=== PATIENT | female | born 1930 | race Caucasian/White ===

== ENCOUNTER 2017-10-29 07:50 | Day surgery (SDC) | payer MEDICARE, OTHER ==
[~2017-10-29 07:50] MED LIST: ACIDOPHILUS PRO PO; ADULT ASPIRIN L81 MG; AMLODIPINE10 MG OR; AMLODIPINE5 MG PO; ARICEPT PO; ASPIRIN EC81 MG PO; BACTRIM DS1 TAB PO; BAYER ASPIRIN325 MG PO; BENADRYL25 MG OR; BENZONATATE200 MG PO; CARAFATE OR; CARAFATE PO; CIPRO250 MG OR; CIPRO500 MG PO; CIPROFLOXACN250 MG PO; CIPROFLOXACN500 MG PO; DONEPEZIL5 MG PO; FISH OIL1000 MG PO; FLUARIX QUADRIV1 IN2 IM; FLUARIX QUADRIV1 INJ IM; ISMO OR; KEFLEX500 MG PO; LIPITOR40 M1 PO; LIPITOR40 MG PO; LIPITOR80 MG OR; LOPRESSOR25 MG OR; LOPRESSOR25 MG PO; MECLIZINE12.5 M1 PO; MECLIZINE12.5 MG OR; MELATONIN PO; MELOXICAM7.5 MG PO; METOPROL TAR25 M1 PO; METRONIDAZOL500 MG PO; METRONIDAZOLE250 MG PO; MULT1 PO; MULTI VIT PO; MYRBETRIQ25 MG; NEXIUM40 M1 OR; PANTOPRAZOLE SO40 MG PO; PAROXETINE10 MG PO; PLAVIX75 MG OR; PRILOSEC20 MG/CAP PO; PROBIOTIC1 TAB PO; PROPRANOLOL HCL40 MG PO; PROTONIX40 M2 PO; SPIRIVA HANDIHALER IN; TUSSIONEX1 ML PO; ULTRAM50 M1 PO; XANAX0.25 MG PO; ZOLOFT25 MG PO; ZPAK PO
[2017-10-29] MEDS ORDERED: KEFLEX500 M1 PO (13:23)
[2017-10-29 13:55] VITALS: BP 120/70
== END 2017-10-29 13:45 | disposition home or self-care (01) ==
LOC: ORM 07:50
PROVIDERS: ATTEND Plastic Surgery
PROC: 0HB2XZZ Excision of Right Ear Skin, External Approach (ICD-10-PCS; principal; 2017-10-29)
PROC: 0HX2XZZ Transfer Right Ear Skin, External Approach (ICD-10-PCS; 2017-10-29)
DX: C44.212 Basal cell carcinoma of skin of right ear and external auricular canal (principal)

== ENCOUNTER 2018-07-02 16:20 | Inpatient (IN) | payer MEDICARE, OTHER, MEDICAID ==
[~2018-07-02] VITALS: Ht 165.1 cm; Wt 63.1 kg
[~2018-07-02 16:20] MED LIST changes: +KEFLEX500 M1 PO
[2018-07-02 17:36] LABS: URINE BILIRUBIN - DIPSTICK NEGATIVE (NEGATIVE); URINE BLOOD DIPSTICK LARGE (NEGATIVE); URINE GLUCOSE - DIPSTICK NEGATIVE (NEGATIVE); URINE KETONE NEGATIVE (NEGATIVE); URINE NITRITE - DIPSTICK NEGATIVE (Negative); URINE PROTEIN - DIPSTICK 30 mg/dL (NEG-TRACE); URINE SPECIFIC GRAVITY 1.015; URINE UROBILINOGEN - DIPSTICK 0.2 E.U./dL (0.2)
[2018-07-02 17:42] LABS: URINE COLOR AMBER; URINE LEUK ESTERASE MODERATE (NEGATIVE)
[2018-07-02 17:47] LABS: URINE BACTERIA MANY hpf; URINE RBC >100 RBC/hpf (0-5)
[2018-07-02 17:47] LABS: HEMATOCRIT 36.3 % (37.0-47.0); HEMOGLOBIN 11.7 g/dl (12.0-16.0); IMMATURE GRANULOCYTES 1.4 % (0.0-5.0); MEAN CELL VOLUME 91.9 fL CALC (80.0-100.0); MEAN CORPUSCULAR HGB 29.6 pG CALC (26.0-32.0); MEAN CORPUSCULAR HGB CONC 32.2 g/L CALC (32.0-36.0); NEUT# 15.64 thou/uL (2.00-7.15); RED BLOOD COUNT 3.95 mill/uL (4.20-5.60); RED CELL DISTRI WIDTH 14.2 % (11.5-15.5)
[2018-07-02 18:06] LABS: ALBUMIN 3.3 g/dL (3.2-5.0); BILIRUBIN, TOTAL 0.6 mg/dL (0.0-1.4); CREATININE 1.1 mg/dL (0.5-1.0); POTASSIUM 3.4 mmol/l (3.5-5.1); TOTAL PROTEIN 6.2 g/dL (6.3-8.2)
[2018-07-02 19:10] VITALS: BP 140/73
[2018-07-03 04:15] VITALS: BP 115/60
[2018-07-03 05:38] LABS: HEMATOCRIT 34.2 % (37.0-47.0); HEMOGLOBIN 11.1 g/dl (12.0-16.0); IMMATURE GRANULOCYTES 5.2 % (0.0-5.0); MEAN CELL VOLUME 92.9 fL CALC (80.0-100.0); MEAN CORPUSCULAR HGB 30.2 pG CALC (26.0-32.0); MEAN CORPUSCULAR HGB CONC 32.5 g/L CALC (32.0-36.0); PLATELET COUNT 154 thou/uL (130-400); RED BLOOD COUNT 3.68 mill/uL (4.20-5.60); RED CELL DISTRI WIDTH 14.6 % (11.5-15.5)
[2018-07-03 05:46] LABS: ALBUMIN 2.9 g/dL (3.2-5.0); BILIRUBIN, TOTAL 0.6 mg/dL (0.0-1.4); CREATININE 1.2 mg/dL (0.5-1.0); POTASSIUM 3.9 mmol/l (3.5-5.1); TOTAL PROTEIN 5.5 g/dL (6.3-8.2)
[2018-07-03 06:05] LABS: ACANTHOCYTES FEW; ANISOCYTOSIS FEW; BAND 13 % (0-8); MANUAL DIFFERENTIAL YES; OVALOCYTES FEW; PLATELET ESTIMATE NORMAL
[2018-07-03 07:52] VITALS: BP 109/64
[2018-07-03 15:17] VITALS: BP 102/71
[2018-07-03 18:48] VITALS: BP 140/66
[2018-07-04] VITALS (7 sets, daily range): BP systolic 136–164; BP diastolic 51–81
[2018-07-04 05:39] LABS: HEMATOCRIT 33.3 % (37.0-47.0); HEMOGLOBIN 10.8 g/dl (12.0-16.0); MEAN CELL VOLUME 91.7 fL CALC (80.0-100.0); MEAN CORPUSCULAR HGB 29.8 pG CALC (26.0-32.0); MEAN CORPUSCULAR HGB CONC 32.4 g/L CALC (32.0-36.0); PLATELET COUNT 138 thou/uL (130-400); RED BLOOD COUNT 3.63 mill/uL (4.20-5.60); RED CELL DISTRI WIDTH 14.6 % (11.5-15.5)
[2018-07-04 05:50] LABS: ALBUMIN 2.7 g/dL (3.2-5.0); ALKALINE PHOSPHATASE 114 u/l (38-126); ANION GAP 11 (6-22 (CALC)); BILIRUBIN, TOTAL 0.6 mg/dL (0.0-1.4); BUN 20 mg/dL (8-23); BUN/CREATININE RATIO 23 (12-20 (CALC)); CARBON DIOXIDE 21 mmol/l (22-30); CHLORIDE 113 mmol/l (95-108); CREATININE 0.9 mg/dL (0.5-1.0); GFR 59 ML/MIN (>=60 (CALC)); GFR FOR AFR.AMER. > 60 ML/MIN (>=60 (CALC)); POTASSIUM 3.6 mmol/l (3.5-5.1); SGOT/AST 61 u/l (9-36); SODIUM 142 mmol/l (137-146); TOTAL PROTEIN 5.4 g/dL (6.3-8.2)
[2018-07-04 06:07] LABS: BAND 2 % (0-8); IMMATURE GRANULOCYTES 7.5 % (0.0-5.0); MANUAL DIFFERENTIAL YES
[2018-07-04 06:08] LABS: ACANTHOCYTES FEW; ANISOCYTOSIS FEW; OVALOCYTES FEW; PLATELET ESTIMATE NORMAL
[2018-07-05] VITALS (7 sets, daily range): BP systolic 96–134; BP diastolic 62–85
[2018-07-05 08:54] LABS: HEMATOCRIT 34.1 % (37.0-47.0); HEMOGLOBIN 11.2 g/dl (12.0-16.0); IMMATURE GRANULOCYTES 1.6 % (0.0-5.0); MEAN CELL VOLUME 90.5 fL CALC (80.0-100.0); MEAN CORPUSCULAR HGB 29.7 pG CALC (26.0-32.0); MEAN CORPUSCULAR HGB CONC 32.8 g/L CALC (32.0-36.0); NEUT# 13.34 thou/uL (2.00-7.15); RED BLOOD COUNT 3.77 mill/uL (4.20-5.60); RED CELL DISTRI WIDTH 14.6 % (11.5-15.5)
[2018-07-05 09:13] LABS: ANION GAP 10 (6-22 (CALC)); BUN 14 mg/dL (8-23); BUN/CREATININE RATIO 19 (12-20 (CALC)); CARBON DIOXIDE 22 mmol/l (22-30); CHLORIDE 115 mmol/l (95-108); CREATININE 0.7 mg/dL (0.5-1.0); GFR > 60 ML/MIN (>=60 (CALC)); GFR FOR AFR.AMER. > 60 ML/MIN (>=60 (CALC)); POTASSIUM 3.5 mmol/l (3.5-5.1); SODIUM 144 mmol/l (137-146)
[2018-07-06 04:20] VITALS: BP 129/81
[2018-07-06 08:44] VITALS: BP 140/75
[2018-07-06 11:10] VITALS: BP 128/75
[2018-07-06 16:00] VITALS: BP 131/72
[2018-07-06 19:52] VITALS: BP 106/58
[2018-07-06 23:15] VITALS: BP 125/87
[2018-07-07 04:27] VITALS: BP 162/84
[2018-07-07 05:36] LABS: HEMATOCRIT 33.1 % (37.0-47.0); HEMOGLOBIN 10.7 g/dl (12.0-16.0); IMMATURE GRANULOCYTES 0.7 % (0.0-5.0); MEAN CELL VOLUME 90.4 fL CALC (80.0-100.0); MEAN CORPUSCULAR HGB 29.2 pG CALC (26.0-32.0); MEAN CORPUSCULAR HGB CONC 32.3 g/L CALC (32.0-36.0); PLATELET COUNT 198 thou/uL (130-400); RED BLOOD COUNT 3.66 mill/uL (4.20-5.60); RED CELL DISTRI WIDTH 14.7 % (11.5-15.5)
[2018-07-07 05:56] LABS: ALBUMIN 2.7 g/dL (3.2-5.0); ALKALINE PHOSPHATASE 129 u/l (38-126); ANION GAP 11 (6-22 (CALC)); BILIRUBIN, TOTAL 0.6 mg/dL (0.0-1.4); BUN 14 mg/dL (8-23); BUN/CREATININE RATIO 17 (12-20 (CALC)); CARBON DIOXIDE 23 mmol/l (22-30); CHLORIDE 115 mmol/l (95-108); CREATININE 0.8 mg/dL (0.5-1.0); GFR > 60 ML/MIN (>=60 (CALC)); GFR FOR AFR.AMER. > 60 ML/MIN (>=60 (CALC)); POTASSIUM 3.3 mmol/l (3.5-5.1); SGOT/AST 27 u/l (9-36); SODIUM 146 mmol/l (137-146); TOTAL PROTEIN 5.4 g/dL (6.3-8.2)
[2018-07-07 06:20] LABS: HYPOCHROMIA MODERATE; MANUAL DIFFERENTIAL YES; MICROCYTOSIS MODERATE
[2018-07-07 06:21] LABS: PLATELET ESTIMATE NORMAL
[2018-07-07 08:19] VITALS: BP 181/84
[2018-07-07 09:34] VITALS: BP 165/85
[2018-07-07 12:00] VITALS: BP 117/74
[2018-07-07 16:00] VITALS: BP 155/82
[2018-07-07 19:00] VITALS: BP 161/83
[2018-07-08 00:06] VITALS: BP 127/79
[2018-07-08 04:09] VITALS: BP 164/94
[2018-07-08 07:55] VITALS: BP 167/91
[2018-07-08 11:30] VITALS: BP 137/67
[2018-07-08 17:15] VITALS: BP 135/67
[2018-07-08 19:00] VITALS: BP 150/76
[2018-07-09 04:00] VITALS: BP 148/82
[2018-07-09 06:53] LABS: HEMOGLOBIN 11.5 g/dl (12.0-16.0); IMMATURE GRANULOCYTES 0.6 % (0.0-5.0); MEAN CELL VOLUME 90.9 fL CALC (80.0-100.0); MEAN CORPUSCULAR HGB 29.9 pG CALC (26.0-32.0); MEAN CORPUSCULAR HGB CONC 32.9 g/L CALC (32.0-36.0); RED BLOOD COUNT 3.85 mill/uL (4.20-5.60); RED CELL DISTRI WIDTH 14.6 % (11.5-15.5)
[2018-07-09 07:00] LABS: ANION GAP 11 (6-22 (CALC)); BUN 9 mg/dL (8-23); BUN/CREATININE RATIO 14 (12-20 (CALC)); CARBON DIOXIDE 25 mmol/l (22-30); CHLORIDE 110 mmol/l (95-108); CREATININE 0.6 mg/dL (0.5-1.0); GFR > 60 ML/MIN (>=60 (CALC)); GFR FOR AFR.AMER. > 60 ML/MIN (>=60 (CALC)); POTASSIUM 3.4 mmol/l (3.5-5.1); SODIUM 143 mmol/l (137-146)
[2018-07-09 07:15] LABS: MANUAL DIFFERENTIAL YES
[2018-07-09 07:16] LABS: HYPOCHROMIA FEW; MICROCYTOSIS FEW
[2018-07-09 07:17] LABS: PLATELET ESTIMATE NORMAL
[2018-07-09 07:18] LABS: PLATELET COUNT 238 thou/uL (130-400)
[2018-07-09 09:11] VITALS: BP 148/83
[2018-07-09 15:45] VITALS: BP 154/82
[2018-07-09] MEDS ORDERED: LEVAQUIN750 MG PO (17:29)
[2018-07-09] MEDS ORDERED: TRAMADOL HCL50 MG PO (17:31)
== END 2018-07-09 18:00 | DRG 871 ==
LOC: ED 16:20 → ED-I 18:05 → ED 18:33 → MS2 18:34
PROVIDERS: Family Medicine; ADMIT Internal Medicine Geriatric Medicine; ATTEND Internal Medicine Geriatric Medicine
PROC: 0T9B70Z Drainage of Bladder with Drainage Device, Via Natural or Artificial Opening (ICD-10-PCS; principal; 2018-07-03)
DX: A41.9 Sepsis, unspecified organism (principal); J18.9 Pneumonia, unspecified organism; N39.0 Urinary tract infection, site not specified; M48.54XA Collapsed vertebra, not elsewhere classified, thoracic region, initial encounter for fracture; I10 Essential (primary) hypertension; I25.10 Atherosclerotic heart disease of native coronary artery without angina pectoris; F03.90 Unspecified dementia, unspecified severity, without behavioral disturbance, psychotic disturbance, mood disturbance, and anxiety; K27.9 Peptic ulcer, site unspecified, unspecified as acute or chronic, without hemorrhage or perforation; K21.9 Gastro-esophageal reflux disease without esophagitis; R62.7 Adult failure to thrive; E86.0 Dehydration; B96.20 Unspecified Escherichia coli [E. coli] as the cause of diseases classified elsewhere; Z68.23 Body mass index [BMI] 23.0-23.9, adult
CPT/HCPCS: G0378; J2060

== ENCOUNTER 2018-07-23 18:48 | Inpatient (IN) | payer MEDICARE, OTHER, MEDICAID ==
[~2018-07-23] VITALS: Ht 165.1 cm; Wt 57.8 kg
[~2018-07-23 18:48] MED LIST changes: +LEVAQUIN750 MG PO; +TRAMADOL HCL50 MG PO
[2018-07-23] MEDS ORDERED: CIPROFLOXACIN500 M1 PO (19:22)
[2018-07-23] MEDS ORDERED: ZYRTEC5 M1 PO (19:23)
[2018-07-23] MEDS ORDERED: NASONEX50 MCG/ACT (19:24)
[2018-07-23 20:02] LABS: HEMATOCRIT 37.2 % (37.0-47.0); IMMATURE GRANULOCYTES 0.5 % (0.0-5.0); MEAN CELL VOLUME 89.4 fL CALC (80.0-100.0); MEAN CORPUSCULAR HGB 28.8 pG CALC (26.0-32.0); MEAN CORPUSCULAR HGB CONC 32.3 g/L CALC (32.0-36.0); NEUT# 7.17 thou/uL (2.00-7.15); RED BLOOD COUNT 4.16 mill/uL (4.20-5.60); RED CELL DISTRI WIDTH 14.3 % (11.5-15.5)
[2018-07-23 20:10] LABS: ALBUMIN 3.9 g/dL (3.2-5.0); ALKALINE PHOSPHATASE 119 u/l (38-126); ANION GAP 15 (6-22 (CALC)); BILIRUBIN, TOTAL 0.8 mg/dL (0.0-1.4); BUN 24 mg/dL (8-23); BUN/CREATININE RATIO 19 (12-20 (CALC)); CARBON DIOXIDE 22 mmol/l (22-30); CHLORIDE 106 mmol/l (95-108); CREATININE 1.3 mg/dL (0.5-1.0); GFR 39 ML/MIN (>=60 (CALC)); GFR FOR AFR.AMER. 47 ML/MIN (>=60 (CALC)); POTASSIUM 3.9 mmol/l (3.5-5.1); SGOT/AST 33 u/l (9-36); SODIUM 139 mmol/l (137-146); TOTAL PROTEIN 7.4 g/dL (6.3-8.2)
[2018-07-23 20:21] LABS: MYOGLOBIN 32 ng/mL (0 - 62)
[2018-07-23 20:36] LABS: URINE BILIRUBIN - DIPSTICK NEGATIVE (NEGATIVE); URINE BLOOD DIPSTICK SMALL (NEGATIVE); URINE COLOR YELLOW; URINE GLUCOSE - DIPSTICK NEGATIVE (NEGATIVE); URINE KETONE NEGATIVE (NEGATIVE); URINE LEUK ESTERASE NEGATIVE (NEGATIVE); URINE NITRITE - DIPSTICK NEGATIVE (Negative); URINE PH 6.5 (4.5-8.0); URINE PROTEIN - DIPSTICK NEGATIVE (NEG-TRACE); URINE UROBILINOGEN - DIPSTICK 0.2 E.U./dL (0.2)
[2018-07-23 20:44] LABS: URINE SQUAMOUS EPITHELIAL CELL FEW EPI/hpf (0-FEW); URINE WBC 0-2 WBC/hpf (0-5)
[2018-07-23 22:25] VITALS: BP 108/54
[2018-07-24] VITALS (7 sets, daily range): BP systolic 87–187; BP diastolic 47–99
[2018-07-24 10:58] LABS: URINE BILIRUBIN - DIPSTICK NEGATIVE (NEGATIVE); URINE BLOOD DIPSTICK SMALL (NEGATIVE); URINE COLOR YELLOW; URINE GLUCOSE - DIPSTICK NEGATIVE (NEGATIVE); URINE KETONE NEGATIVE (NEGATIVE); URINE LEUK ESTERASE NEGATIVE (Negative); URINE NITRITE - DIPSTICK NEGATIVE (Negative); URINE PH 6.5 (4.5-8.0); URINE PROTEIN - DIPSTICK NEGATIVE (NEG-TRACE); URINE SPECIFIC GRAVITY 1.015; URINE UROBILINOGEN - DIPSTICK 0.2 E.U./dL (0.2)
[2018-07-24 11:02] LABS: URINE CLARITY CLEAR
[2018-07-24 11:14] LABS: URINE RBC 25-50 RBC/hpf (0-5); URINE SQUAMOUS EPITHELIAL CELL FEW EPI/hpf (0-FEW)
[2018-07-25] VITALS (7 sets, daily range): BP systolic 125–152; BP diastolic 63–83
[2018-07-25 06:13] LABS: HEMATOCRIT 35.5 % (37.0-47.0); HEMOGLOBIN 11.2 g/dl (12.0-16.0); IMMATURE GRANULOCYTES 0.4 % (0.0-5.0); MEAN CELL VOLUME 91.3 fL CALC (80.0-100.0); MEAN CORPUSCULAR HGB 28.8 pG CALC (26.0-32.0); MEAN CORPUSCULAR HGB CONC 31.5 g/L CALC (32.0-36.0); NEUT# 4.09 thou/uL (2.00-7.15); RED BLOOD COUNT 3.89 mill/uL (4.20-5.60); RED CELL DISTRI WIDTH 14.3 % (11.5-15.5)
[2018-07-25 06:39] LABS: CREATININE 1.3 mg/dL (0.5-1.0); POTASSIUM 3.7 mmol/l (3.5-5.1)
[2018-07-25 06:42] LABS: BILIRUBIN, TOTAL 0.4 mg/dL (0.0-1.4)
[2018-07-25 06:43] LABS: ALBUMIN 2.7 g/dL (3.2-5.0); TOTAL PROTEIN 5.6 g/dL (6.3-8.2)
[2018-07-26 04:08] VITALS: BP 149/88
[2018-07-26 05:08] LABS: HEMATOCRIT 32.1 % (37.0-47.0); HEMOGLOBIN 10.7 g/dl (12.0-16.0); IMMATURE GRANULOCYTES 0.2 % (0.0-5.0); MEAN CELL VOLUME 88.7 fL CALC (80.0-100.0); MEAN CORPUSCULAR HGB 29.6 pG CALC (26.0-32.0); MEAN CORPUSCULAR HGB CONC 33.3 g/L CALC (32.0-36.0); RED BLOOD COUNT 3.62 mill/uL (4.20-5.60)
[2018-07-26 06:22] LABS: MANUAL DIFFERENTIAL YES; PLATELET COUNT 92 thou/uL (130-400)
[2018-07-26 06:23] LABS: CREATININE 1.2 mg/dL (0.5-1.0); OTHER CELL TYPE 3; POTASSIUM 3.5 mmol/l (3.5-5.1)
[2018-07-26 10:30] VITALS: BP 161/82
[2018-07-26 15:24] VITALS: BP 171/96
[2018-07-26 19:05] VITALS: BP 168/80
[2018-07-27] VITALS: BP 147/86
[2018-07-27 04:27] VITALS: BP 133/83
[2018-07-27 07:00] VITALS: BP 107/61
[2018-07-27 14:30] VITALS: BP 134/77
[2018-07-27 19:00] VITALS: BP 145/85
[2018-07-28 04:30] VITALS: BP 156/90
[2018-07-28 05:27] LABS: HEMATOCRIT 34.2 % (37.0-47.0); HEMOGLOBIN 11.2 g/dl (12.0-16.0); IMMATURE GRANULOCYTES 0.2 % (0.0-5.0); MEAN CELL VOLUME 87.9 fL CALC (80.0-100.0); MEAN CORPUSCULAR HGB 28.8 pG CALC (26.0-32.0); MEAN CORPUSCULAR HGB CONC 32.7 g/L CALC (32.0-36.0); RED BLOOD COUNT 3.89 mill/uL (4.20-5.60); RED CELL DISTRI WIDTH 14.1 % (11.5-15.5)
[2018-07-28 05:56] LABS: PLATELET COUNT 72 thou/uL (130-400)
[2018-07-28 05:57] LABS: MANUAL DIFFERENTIAL YES; OTHER CELL TYPE 4; PLATELET ESTIMATE MARKED DECREASE
[2018-07-28 06:15] LABS: ANION GAP 12 (6-22 (CALC)); BUN 16 mg/dL (8-23); BUN/CREATININE RATIO 21 (12-20 (CALC)); CARBON DIOXIDE 22 mmol/l (22-30); CHLORIDE 109 mmol/l (95-108); CREATININE 0.7 mg/dL (0.5-1.0); GFR > 60 ML/MIN (>=60 (CALC)); GFR FOR AFR.AMER. > 60 ML/MIN (>=60 (CALC)); POTASSIUM 3.7 mmol/l (3.5-5.1); SODIUM 139 mmol/l (137-146)
[2018-07-28 07:50] VITALS: BP 179/75
[2018-07-28 11:30] VITALS: BP 147/69
[2018-07-28 15:45] VITALS: BP 164/73
[2018-07-28 19:00] VITALS: BP 142/51
[2018-07-29 04:15] VITALS: BP 136/71
[2018-07-29 08:20] VITALS: BP 117/54
[2018-07-29 09:53] VITALS: BP 117/54
== END 2018-07-29 12:06 | disposition home health service (06) | DRG 641 ==
LOC: ED 18:48 → ED-I 20:50 → ED 21:10 → MS2 21:11
PROVIDERS: Emergency Medicine; ADMIT Internal Medicine Geriatric Medicine; ATTEND Internal Medicine Geriatric Medicine
PROC: 0T9B70Z Drainage of Bladder with Drainage Device, Via Natural or Artificial Opening (ICD-10-PCS; principal; 2018-07-24)
DX: E86.0 Dehydration (principal); R50.9 Fever, unspecified; F03.90 Unspecified dementia, unspecified severity, without behavioral disturbance, psychotic disturbance, mood disturbance, and anxiety; I10 Essential (primary) hypertension; I25.10 Atherosclerotic heart disease of native coronary artery without angina pectoris; K21.9 Gastro-esophageal reflux disease without esophagitis; K27.9 Peptic ulcer, site unspecified, unspecified as acute or chronic, without hemorrhage or perforation; Z86.73 Personal history of transient ischemic attack (TIA), and cerebral infarction without residual deficits
CPT/HCPCS: J1956; J3370

== ENCOUNTER 2018-08-04 18:17 | Observation (INO) | payer MEDICARE, OTHER, MEDICAID ==
[~2018-08-04] VITALS: Ht 165.1 cm; Wt 61.0 kg
[~2018-08-04 18:17] MED LIST changes: +CIPROFLOXACIN500 M1 PO; +NASONEX50 MCG/ACT; +ZYRTEC5 M1 PO
[2018-08-04 19:27] LABS: HEMATOCRIT 31.9 % (37.0-47.0); IMMATURE GRANULOCYTES 0.6 % (0.0-5.0); MEAN CELL VOLUME 90.1 fL CALC (80.0-100.0); MEAN CORPUSCULAR HGB 28.2 pG CALC (26.0-32.0); MEAN CORPUSCULAR HGB CONC 31.3 g/L CALC (32.0-36.0); NEUT# 3.99 thou/uL (2.00-7.15); RED BLOOD COUNT 3.54 mill/uL (4.20-5.60); RED CELL DISTRI WIDTH 14.6 % (11.5-15.5)
[2018-08-04 19:33] LABS: ALKALINE PHOSPHATASE 123 u/l (38-126); ANION GAP 13 (6-22 (CALC)); BUN 18 mg/dL (8-23); BUN/CREATININE RATIO 23 (12-20 (CALC)); CARBON DIOXIDE 25 mmol/l (22-30); CHLORIDE 107 mmol/l (95-108); CREATININE 0.8 mg/dL (0.5-1.0); GFR > 60 ML/MIN (>=60 (CALC)); GFR FOR AFR.AMER. > 60 ML/MIN (>=60 (CALC)); LIPASE 123 u/l (23-300); SGOT/AST 45 u/l (9-36); SODIUM 141 mmol/l (137-146)
[2018-08-04 19:40] LABS: ALBUMIN 3.4 g/dL (3.2-5.0); BILIRUBIN, TOTAL 0.6 mg/dL (0.0-1.4); TOTAL PROTEIN 6.9 g/dL (6.3-8.2)
[2018-08-04 20:11] LABS: URINE BILIRUBIN - DIPSTICK NEGATIVE (NEGATIVE); URINE BLOOD DIPSTICK LARGE (NEGATIVE); URINE COLOR YELLOW; URINE GLUCOSE - DIPSTICK NEGATIVE (NEGATIVE); URINE KETONE NEGATIVE (NEGATIVE); URINE LEUK ESTERASE NEGATIVE (NEGATIVE); URINE NITRITE - DIPSTICK NEGATIVE (Negative); URINE PROTEIN - DIPSTICK NEGATIVE (NEG-TRACE); URINE UROBILINOGEN - DIPSTICK 0.2 E.U./dL (0.2)
[2018-08-04 20:21] LABS: URINE RBC 25-50 RBC/hpf (0-5); URINE WBC 0-2 WBC/hpf (0-5)
[2018-08-04 22:59] VITALS: BP 115/68
[2018-08-05] VITALS (9 sets, daily range): BP systolic 84–131; BP diastolic 50–83
[2018-08-05 06:05] LABS: HEMOGLOBIN 8.9 g/dl (12.0-16.0); IMMATURE GRANULOCYTES 0.3 % (0.0-5.0); MEAN CELL VOLUME 89.5 fL CALC (80.0-100.0); MEAN CORPUSCULAR HGB 28.4 pG CALC (26.0-32.0); MEAN CORPUSCULAR HGB CONC 31.8 g/L CALC (32.0-36.0); NEUT# 3.59 thou/uL (2.00-7.15); RED BLOOD COUNT 3.13 mill/uL (4.20-5.60); RED CELL DISTRI WIDTH 14.6 % (11.5-15.5)
[2018-08-05 06:25] LABS: ALKALINE PHOSPHATASE 100 u/l (38-126); ANION GAP 10 (6-22 (CALC)); BILIRUBIN, TOTAL 0.5 mg/dL (0.0-1.4); BUN 14 mg/dL (8-23); BUN/CREATININE RATIO 18 (12-20 (CALC)); CARBON DIOXIDE 26 mmol/l (22-30); CHLORIDE 107 mmol/l (95-108); CREATININE 0.8 mg/dL (0.5-1.0); GFR > 60 ML/MIN (>=60 (CALC)); GFR FOR AFR.AMER. > 60 ML/MIN (>=60 (CALC)); POTASSIUM 4.1 mmol/l (3.5-5.1); SGOT/AST 22 u/l (9-36); SODIUM 138 mmol/l (137-146)
[2018-08-05 06:26] LABS: ALBUMIN 2.5 g/dL (3.2-5.0); TOTAL PROTEIN 5.5 g/dL (6.3-8.2)
[2018-08-06 04:30] VITALS: BP 129/82
[2018-08-06 06:00] LABS: HEMATOCRIT 29.4 % (37.0-47.0); HEMOGLOBIN 9.3 g/dl (12.0-16.0); IMMATURE GRANULOCYTES 0.5 % (0.0-5.0); MEAN CELL VOLUME 90.2 fL CALC (80.0-100.0); MEAN CORPUSCULAR HGB 28.5 pG CALC (26.0-32.0); MEAN CORPUSCULAR HGB CONC 31.6 g/L CALC (32.0-36.0); NEUT# 3.96 thou/uL (2.00-7.15); RED BLOOD COUNT 3.26 mill/uL (4.20-5.60); RED CELL DISTRI WIDTH 14.4 % (11.5-15.5)
[2018-08-06 06:13] LABS: ALBUMIN 2.6 g/dL (3.2-5.0); ALKALINE PHOSPHATASE 102 u/l (38-126); ANION GAP 10 (6-22 (CALC)); BILIRUBIN, TOTAL 0.5 mg/dL (0.0-1.4); BUN 9 mg/dL (8-23); BUN/CREATININE RATIO 11 (12-20 (CALC)); CARBON DIOXIDE 26 mmol/l (22-30); CHLORIDE 108 mmol/l (95-108); CREATININE 0.9 mg/dL (0.5-1.0); GFR 59 ML/MIN (>=60 (CALC)); GFR FOR AFR.AMER. > 60 ML/MIN (>=60 (CALC)); POTASSIUM 4.1 mmol/l (3.5-5.1); SGOT/AST 21 u/l (9-36); SODIUM 140 mmol/l (137-146); TOTAL PROTEIN 5.5 g/dL (6.3-8.2)
[2018-08-06 07:45] VITALS: BP 136/77
[2018-08-06 15:20] VITALS: BP 105/69
[2018-08-06 19:25] VITALS: BP 98/69
[2018-08-07 03:30] VITALS: BP 118/59
[2018-08-07 07:31] VITALS: BP 107/81
== END 2018-08-07 09:59 | disposition home or self-care (01) ==
LOC: ED 18:17 → ED-I 20:32 → ED 21:13 → MS2 21:14
PROVIDERS: ADMIT Internal Medicine Geriatric Medicine; ATTEND Internal Medicine Geriatric Medicine
PROC: 0T788DZ Dilation of Bilateral Ureters with Intraluminal Device, Via Natural or Artificial Opening Endoscopic (ICD-10-PCS; principal; 2018-08-05)
PROC: BT141ZZ Fluoroscopy of Kidneys, Ureters and Bladder using Low Osmolar Contrast (ICD-10-PCS; 2018-08-05)
PROC: 0T9B70Z Drainage of Bladder with Drainage Device, Via Natural or Artificial Opening (ICD-10-PCS; 2018-08-05)
DX: N13.2 Hydronephrosis with renal and ureteral calculous obstruction (principal); N32.89 Other specified disorders of bladder; R32 Unspecified urinary incontinence; I10 Essential (primary) hypertension; F03.90 Unspecified dementia, unspecified severity, without behavioral disturbance, psychotic disturbance, mood disturbance, and anxiety; I25.10 Atherosclerotic heart disease of native coronary artery without angina pectoris; E78.5 Hyperlipidemia, unspecified; K21.9 Gastro-esophageal reflux disease without esophagitis; K29.70 Gastritis, unspecified, without bleeding; K27.9 Peptic ulcer, site unspecified, unspecified as acute or chronic, without hemorrhage or perforation; Z87.442 Personal history of urinary calculi; Z95.5 Presence of coronary angioplasty implant and graft; Z86.73 Personal history of transient ischemic attack (TIA), and cerebral infarction without residual deficits; Z87.01 Personal history of pneumonia (recurrent); Z87.440 Personal history of urinary (tract) infections
CPT/HCPCS: C1769; Q9967

== ENCOUNTER 2018-09-05 06:19 | Day surgery (SDC) | payer MEDICARE, OTHER ==
[2018-09-05 09:12] VITALS: BP 97/55
== END 2018-09-05 09:30 | disposition home or self-care (01) ==
LOC: ORM 06:19
PROVIDERS: ATTEND Urology
PROC: 0TC68ZZ Extirpation of Matter from Right Ureter, Via Natural or Artificial Opening Endoscopic (ICD-10-PCS; principal; 2018-09-05)
PROC: 0TP98DZ Removal of Intraluminal Device from Ureter, Via Natural or Artificial Opening Endoscopic (ICD-10-PCS; 2018-09-05)
PROC: BT14YZZ Fluoroscopy of Kidneys, Ureters and Bladder using Other Contrast (ICD-10-PCS; 2018-09-05)
DX: N20.1 Calculus of ureter (principal); Q62.8 Other congenital malformations of ureter; R33.9 Retention of urine, unspecified; I10 Essential (primary) hypertension; I25.10 Atherosclerotic heart disease of native coronary artery without angina pectoris; F03.90 Unspecified dementia, unspecified severity, without behavioral disturbance, psychotic disturbance, mood disturbance, and anxiety; Z86.73 Personal history of transient ischemic attack (TIA), and cerebral infarction without residual deficits; Z95.5 Presence of coronary angioplasty implant and graft
CPT/HCPCS: C1769; Q9967

== ENCOUNTER 2018-09-25 19:59 | Emergency (ER) | payer MEDICARE, OTHER ==
[~2018-09-25] VITALS: Ht 165.1 cm; Wt 55.0 kg
[2018-09-25] MEDS ORDERED: MACRODANTIN50 MG PO (20:38)
[2018-09-25 22:05] VITALS: BP 122/60
== END 2018-09-25 22:05 ==
LOC: ED 19:59
PROC: 0HQ1XZZ Repair Face Skin, External Approach (ICD-10-PCS; principal; 2018-09-25)
DX: S01.81XA Laceration without foreign body of other part of head, initial encounter (principal); I10 Essential (primary) hypertension; F03.90 Unspecified dementia, unspecified severity, without behavioral disturbance, psychotic disturbance, mood disturbance, and anxiety; I25.10 Atherosclerotic heart disease of native coronary artery without angina pectoris; W01.198A Fall on same level from slipping, tripping and stumbling with subsequent striking against other object, initial encounter; Y92.091 Bathroom in other non-institutional residence as the place of occurrence of the external cause; Z86.73 Personal history of transient ischemic attack (TIA), and cerebral infarction without residual deficits; Z95.5 Presence of coronary angioplasty implant and graft

== ENCOUNTER 2019-05-11 | Inpatient (IN) | payer MEDICARE, OTHER, MEDICAID ==
[2019-05-11] VITALS (19 sets, daily range): BP systolic 78–134; BP diastolic 47–78
[~2019-05-11] MED LIST changes: +MACRODANTIN50 MG PO
--- NOTE | 2019-05-11 08:46 | NUR ---
PATIENT ARRIVES TO ED VIA EMS.
--- NOTE | 2019-05-11 09:25 | NUR ---
LAB UNABLE TO OBTAIN BLOOD FOR LABS AND BLOOD CULTURE. RT AT BEDSIDE FOR NEB TREATMENT. BIPAP IN PLACE PATIENT TOLERATING WELL. WILL CONTINUE TO MONITOR.
--- NOTE | 2019-05-11 09:28 | NUR ---
PT PLACED ON BIPAP IN ER FOR SEVERE HYOXIA. PT IS SOB WITH RR IN 50'S. SPO2 97% WITH FIO2 AT 40%.
[2019-05-11] MEDS ORDERED: ACIDOPHILUS1 CAP PO (09:55)
[2019-05-11] MEDS ORDERED: TRAZODONE50 MG PO (09:56)
[2019-05-11] MEDS ORDERED: PROTONIX40 M2 PO (09:56)
[2019-05-11] MEDS ORDERED: SEROQUEL25 MG PO (09:57)
--- NOTE | 2019-05-11 09:57 | NUR ---
MED REC COMPLETED WITH LIST SENT FROM [facility].
--- NOTE | 2019-05-11 09:58 | NUR ---
LAB AT BEDSIDE TO ATTEMP BLOOD WORK.
--- NOTE | 2019-05-11 10:15 | NUR ---
LAB UNABLE TO OBTAIN BLOOD WORK. AT BEDSIDE TO SPEAK TO SON ABOUT CENTRAL LINE PLACEMENT. SON AGREES TO CENTRAL LINE.
--- NOTE | 2019-05-11 10:55 | NUR ---
PATIENT TOLERATED CENTRAL LINE PLACEMENT WELL. CONTINUES ON BIPAP.
--- NOTE | 2019-05-11 11:20 | NUR ---
PATIENT CLEANED OF LARGE FORMED BM. URINE SAMPLE COLLECTED VIA STRAIGHT CATH. X2 STAFF ASSIST. PATIENT TOLERATED WELL.
[2019-05-11 11:23] LABS: HEMATOCRIT 27.1 % (37.0-47.0); HEMOGLOBIN 8.2 g/dl (12.0-16.0); IMMATURE GRANULOCYTES 0.3 % (0.0-5.0); MEAN CELL VOLUME 84.4 fL CALC (80.0-100.0); MEAN CORPUSCULAR HGB 25.5 pG CALC (26.0-32.0); MEAN CORPUSCULAR HGB CONC 30.3 g/L CALC (32.0-36.0); NEUT# 9.79 thou/uL (2.00-7.15); RED BLOOD COUNT 3.21 mill/uL (4.20-5.60); RED CELL DISTRI WIDTH 15.3 % (11.5-15.5)
[2019-05-11 11:36] LABS: INTERNATIONAL NORMALIZED RATIO 1.1 RATIO (0.7-1.3); PROTHROMBIN TIME 11.4 SECONDS (9.0-12.5)
[2019-05-11 11:37] LABS: BILIRUBIN, TOTAL 0.6 mg/dL (0.0-1.4); CREATININE 1.4 mg/dL (0.5-1.0); POTASSIUM 3.6 mmol/l (3.5-5.1); TOTAL PROTEIN 5.7 g/dL (6.3-8.2)
[2019-05-11 11:45] LABS: ALBUMIN 2.8 g/dL (3.2-5.0)
--- NOTE | 2019-05-11 12:20 | NUR ---
PATIENT CLEANED OF LARGE LOOSE BROWN STOOL.
[2019-05-11 12:26] LABS: URINE BILIRUBIN - DIPSTICK NEGATIVE (NEGATIVE); URINE BLOOD DIPSTICK LARGE (NEGATIVE); URINE COLOR YELLOW; URINE GLUCOSE - DIPSTICK NEGATIVE (NEGATIVE); URINE KETONE NEGATIVE (NEGATIVE); URINE LEUK ESTERASE NEGATIVE (NEGATIVE); URINE PROTEIN - DIPSTICK 30 mg/dL (NEG-TRACE); URINE UROBILINOGEN - DIPSTICK 0.2 E.U./dL (0.2)
[2019-05-11 12:29] LABS: URINE NITRITE - DIPSTICK POSITIVE (Negative)
[2019-05-11 12:32] LABS: URINE RBC 25-50 RBC/hpf (0-5)
[2019-05-11 12:33] LABS: URINE BACTERIA MODERATE hpf; URINE EPITHELIAL CELLS MANY EPI/hpf (0-FEW)
--- NOTE | 2019-05-11 12:40 | NUR ---
PATIENT MEDICATED PER MD ORDER. TOLERATED WELL.
--- NOTE | 2019-05-11 12:50 | NUR ---
REPORT GIVEN TO KELVIN MALDONADO.
--- NOTE | 2019-05-11 13:10 | NUR ---
PATIENT TRANSPORTED TO ICU WITH COILER IN PLACE AND DRIP INFUSING. KELVIN MALDONADO AT BEDSIDE. DNR SENT UP WITH PATIENT. CARE RELINQUISHED.
--- NOTE | 2019-05-11 13:10 | NUR ---
PT ARRIVED TO UNIT VIA STRETCHER WITH ER STAFF; EYES CLOSED AND RESPONDS ONLY TO PAIN. RESPIRATIONS EVEN AND SLIGHTLY LABORED; CURRENTLY ON OXYGEN 5L VIA NC; 96% SPO2; 26 RPM. HEPARIN DRIP INFUSING AT 15ML/HR. SON AT BEDSIDE. PT INCONTINENT OF SMALL BOWEL MOVEMENT; HYGEINE PROVIDED. RT AT BEDSIDE FOR EVAL; WILL KEEP OFF BIPAP FOR NOW; PT RESTING COMFORTABLY. PLAN OF CARE DISCUSSED WITH SON. ENCOURAGED TO VERBALIZE CONCERNS. STATES UNDERSTANDING. SAFETY MEASURES IN PLACE INCLUDING BED ALARM. CALL LIGHT WITHIN REACH.
--- NOTE | 2019-05-11 13:30 | NUR ---
PT TRANSFERED TO ICU. TAKEN OFF BIPAP AND PLACED ON 5L NC. SPO2 IS 95%, HR 114, RR 36.
--- NOTE | 2019-05-11 14:49 | NUR ---
PT HYPOTENSIVE SINCE ARRIVAL; NEW ORDER RECEIVED FOR LEVOPHED DRIP. SINUS TACH 110S-120S ON RETAIL FIELD SUPERVISOR WITH PVS PACS AND 1ST DEGREE AVB; HR IRREGULAR. 95% SPO2 ON 5L. NORMAL SALINE INTIATED AT 125ML/HR. RIJ TRIPLE LUMEN IN PLACE; DRESSING CDI.
--- NOTE | 2019-05-11 15:22 | NUR ---
LEVOPHED INITATED AT THIS TIME AT 8 MCG/MIN. BP 87/56 HR 102. RESPIRATIONS ARE EVEN AND [id number]; 26 RPM; 95% SPO2.
--- NOTE | 2019-05-11 15:55 | NUR ---
FAMILY AT BEDSIDE; RT PLACED BIPAP ON 07/09 40% SPO2. 100% SPO2. BP UP TO 100/61.
--- NOTE | 2019-05-11 15:56 | NUR ---
PT PLACED BACK ON BIPAP.
--- NOTE | 2019-05-11 17:45 | NUR ---
PT REMAINS ON BIPAP AND RESTING WITH EYES CLOSED; REMAINS NON VERBAL. LEVOPHED CONTINUES AT 8 MCG/MIN; NORMAL SALINE AT 125 ML/HR; HEPARIN INFUSING WELL. DR. GUERRERO AT BEDSIDE
--- NOTE | 2019-05-11 18:21 | NUR ---
PT INCONTINENT OF BOWEL AND URINE; PARTIAL BATH AND LINEN CHANGE GIVEN.
--- NOTE | 2019-05-11 19:35 | NUR ---
PATIENT WITH RESTING IN BED WITH EYES CLOSED. DOES NOT OPEN EYES TO NAME, SQUINTS THEM SHUT WHEN SPOKEN TOO.ANGELES. NOT FOLLOWING COMMANDS BUT MOVES SELF IN BED FROM SIDE TO SIDE. WITHDRAW TO NAILBED PRESSURE. RESP NON-LABORED. ON BIPAP 14/6 WITH FIP2 40% O2 SAT 100% BREATH SOUNDS DIMINISHED THROUGHOUT WITH CRACKLES IN LEFT BASE. ABD SOFT WITH ACTIVE BOWEL SOUNDS. NO PERIPHERAL EDEMA, PULSES PALPABLE. RIJ TLC IN PLACE, DSG CDI, LEVOPHED INFUSING AT 8 MCG/MIN (30 ML/HR), HEPARIN GTT AT 600 UNITS/HR (12 ML/HR), ONE PORT HEP LOCKED. RAC SALINE LOCK FLUSHED AND PATENT, SITE BENIGN. RFA IV SITE HEALTHY WITH NS INFUSING AT 125 ML/HR. MONITOR ST WITH FREQ PVC'S AND PAC'S.
--- NOTE | 2019-05-11 19:50 | NUR ---
DAUGHTER SIGNED CONSENT FOR BLOOD TRANSFUSION.
--- NOTE | 2019-05-11 20:15 | NUR ---
NS STARTED AT [facility] FOR BLOOD TRANSFUSION. PRE-TRANSFUSION VSS.
--- NOTE | 2019-05-11 20:35 | NUR ---
UNIT OF PRBC'S STARTED. SEE TAR FOR FURTHER INFORMATION.
--- NOTE | 2019-05-11 20:50 | NUR ---
NO S/S OF TRANSFUSION REACTION.
--- NOTE | 2019-05-11 21:35 | NUR ---
PATIENT TOLERATING TRANSFUSION WITHOUT INCIDENT. SON AND DAUGHTER AT BEDSIDE.
--- NOTE | 2019-05-11 22:45 | NUR ---
TRANSFUION COMPLETED. VSS. PATIENT INCONTINENT OF URINE. ANDREA-CARE GIVEN AND BRIEF PLACED ON PATIENT. TURNED AND REPOSITONED WITH PILLOWS. HEPARIN GTT ON HOLD FOR PTT OF 101.7 PER PROTOCOL.
--- NOTE | 2019-05-11 23:45 | NUR ---
HEPARIN GTT RESUMED AT 400 UNITS/HR (8 ML/HR).
[2019-05-12] VITALS (24 sets, daily range): BP systolic 83–119; BP diastolic 52–88
--- NOTE | 2019-05-12 01:30 | NUR ---
PATIENT INCONTINENT OF URINE, ANDREA-CARE GIVEN. REPOSITONED.
--- NOTE | 2019-05-12 03:10 | NUR ---
TURNED AND REPOSITIONED. PATIENT REMAINS NON-VERBAL. OCCASIONALLY OPENS EYES. PATIENT MOVES ALL EXTREMITIES AND HELPS TO TURN IN BED.
--- NOTE | 2019-05-12 04:21 | NUR ---
VSS. RESP NON-LABORED, REMAINS ON BIPAP. LEVOPHED GTT CONTINUES AT 8 MCG/MIN, HEPARIN GTT AT 400 UNITS/HR. NS INFUSING TO RFA IV SITE. SALINE LOCK INTACT IN RAC. ALL IV SITES BENIGN. MONITOR SR-SR WITH FREQ PAC'S AND PVC'S. SON AT BEDSIDE.
[2019-05-12 05:32] LABS: HEMATOCRIT 28.9 % (37.0-47.0); HEMOGLOBIN 9.2 g/dl (12.0-16.0); MEAN CORPUSCULAR HGB 25.8 pG CALC (26.0-32.0); MEAN CORPUSCULAR HGB CONC 31.8 g/L CALC (32.0-36.0); RED BLOOD COUNT 3.57 mill/uL (4.20-5.60); RED CELL DISTRI WIDTH 15.9 % (11.5-15.5)
--- NOTE | 2019-05-12 05:45 | NUR ---
PATIENT INCONTINENT OF LARGE AMOUNT OF URINE. COMPLETE BED BATH GIVEN AND LINENS CHANGED. REPOSITONED IN BED. PATIENT WIDE AWAK ETHIS MORNING. PULLING AT BIPAP MASK-TRIED ON O2 AT 6 L NC AND SATS 92-95%, HR 120'SPLACED BACK ON BIPAP. PATEINT SOMEWHAT RESTLESS. CALMS TO VERBAL CUES. SON REMIANS AT BEDSIDE
[2019-05-12 05:53] LABS: CHOLESTEROL HDL RATIO 3.6 (<4.4 (CALC)); MAGNESIUM 1.4 mg/dL (1.6-2.3)
[2019-05-12 05:57] LABS: ALBUMIN 2.7 g/dL (3.2-5.0); BILIRUBIN, TOTAL 0.7 mg/dL (0.0-1.4); CREATININE 1.7 mg/dL (0.5-1.0); POTASSIUM 4.2 mmol/l (3.5-5.1); TOTAL PROTEIN 5.6 g/dL (6.3-8.2)
--- NOTE | 2019-05-12 07:20 | NUR ---
REPORT RECEIVED FROM KELVIN CHAPA. PT RESTING IN BED SEMI FOWLERS; ALERT AND DROWSY; SLIGHTLY VERBAL BUT INCOMPREHENSABLE. OFF BIPAP AND NOW ON NC 5L. SON REMAINS AT BEDSIDE. PT HAS SOME SIGNS OF DISCOMFORT; REPOSITIONED AND MOUTH SWABS USED TO MOISTEN MOUTH. RESPIRATIONS EVEN AND SLIGHTLY LABORED WITH EXERTION. PLAN OF CARE REVIEWED WITH SON. PT ENCOURAGED TO VERBALIZE CONCERNS. STATES UNDERSTANDING. SAFETY MEASURES IN PLACE. CALL LIGHT WITHIN REACH.
--- NOTE | 2019-05-12 08:09 | NUR ---
SPO2 DECREASED TO 85% WITH NC; PLACED BACK ON BIPAP.
--- NOTE | 2019-05-12 08:42 | NUR ---
DR. GUERRERO AND RT AT BEDSIDE. REMOVING BIPAP AND APPLYING HIGH FLOW NC.
--- NOTE | 2019-05-12 11:17 | NUR ---
2 SETS OF BLOOD CULTURES GROWING GRAM NEGATIVE RODS. NO HISTORY OF ESBL. PT ADMITTED AND ON CEFEPIME
--- NOTE | 2019-05-12 11:57 | NUR ---
PTT THERAPEUTIC; NEXT LAB SCHEDULED FOR TOMORROW MORNING. PT RESTING WITH EYES CLOSED. DECREASED APETITE; PT HAS DIFFICUTLY WITH EATING/SWALLOWING. CONTINUING FLUIDS AND ORAL CARE. HEPARIN INFUSING AT 400 UNITS/HR; LEVOPHED CONTNUES AT 8 MCG/MIN; NORMAL SALINE AT 125 ML/HR. ALL IV SITES APPEAR HEALTHY.
--- NOTE | 2019-05-12 13:28 | NUR ---
CRACKLES AUSCULTATED THROUGHOUT LUNG [place]; IV MAINTENANCE FLUIDS DISCONTINUED AND NEW ORDER FOR LASIX IN PLACE. BREATHING MORE LABORED; BIPAP APPLIED 60% FIO2 16/8; FAMILY AT BEDSIDE.
--- NOTE | 2019-05-12 13:35 | NUR ---
CALLED TO PT ROOM FOR ASSESMENT. PT RR 28 SAO2 72%. PT PLACED ON BIPAP PER FAMILY REQUEST. SETTINGS ADJUSTED 16//60% AT THIS TIME. SAO2 92% RN ERICA AWARE AND AT BEDSIDE WITH FAMILY.
--- NOTE | 2019-05-12 14:26 | NUR ---
SPO2 NOW 95% AND RESPIRATIONS ARE LESS LABORED. FAMILY REMAINS AT BEDSIDE.
--- NOTE | 2019-05-12 15:49 | NUR ---
S: LAYLA ALSTON is a 89 F who presents with sepsis. She has a history of coronary artery disease, hypertension, stroke, dementia, chronic kidney disease, and recurrent urinary tract infections. All medications in patient's chart were reviewed. O: VS: BP 109/72 mmhg, P 112 bpm, RR 36 breaths/min, T 98.3 F W 62 kg, HT 65 in, Scr 1.7 mg/dl, CrCl 22.7 ml/min A: Blood culture is pending but preliminary results show gram negative rods. Urine culture is pending. P: Patient is on cefepime 1 gm IV q12h @1100 and 2300. Vancomycin ordered for pharmacy to dose. Start Vancomycin 1 gm IV Q36H. Pt received one dose in ED on 05/11/19 @ 0900. Vancomycin trough is drawn before the 4th dose on 05/15/2019 @ 2030. Vancomycin goal trough is between 15-20 mcg/ml. Pharmacy will follow and or advise on antibiotics use as needed.
--- NOTE | 2019-05-12 16:32 | NUR ---
PT OFF BIPAP PER FAMILY WISHES PLACED ON 15LPM HFNC SATS TO LOW 90'S PT IN RESP DISTRESS CALL TO DR FOR MEDICATION FOR SEDATION
--- NOTE | 2019-05-12 16:37 | NUR ---
SPOKE WITH ROBERTO REGARDING ALLERGY TO CODEINE AND HYDROMORPHONE (AGITATION AND RASH RESPECTIVELY). PT RECEIVED MORPHINE AT [facility] LAST IN 2013. ROBERTO REQUESTED I ASK NURSE TO MONITOR FOR ADRS TO MORPHINE AND ENTER ORDER.
--- NOTE | 2019-05-12 16:40 | NUR ---
PT IS HAVING A LOT OF COUGHING AND SIGNS OF PAIN; MOANING. NEW ORDER RECEIVED FOR MORPHINE PRN; GIVEN AT THIS TIME. REPOSITIONED. CURRENTLY ON 15L OF HIGH FLOW OXYGEN VIA NC. WILL CONTINUE TO MONITOR.
--- NOTE | 2019-05-12 17:02 | NUR ---
EDUCATOR SENIOR CLINICAL AT BEDSIDE.
--- NOTE | 2019-05-12 18:32 | NUR ---
PT ATTEMPTING TO GET OUT OF BED; SON CALLED AND PT HAD BOTH LEGS OVER THE SIDE OF THE BED. INCONTINENT OF LARGE URINE; CHANGED AND ANDREA CARE PROVIDED. SPO2 DOWN TO 87% DURING CARE. ST 126 WITH PACS PVCS. CONTINUES TO BE NONVERBAL EXCEPT FOR SINGLE SIMPLE WORDS LIKE "HEY" AND "OH GOD." MOANING AND COUGHING. NEEDS ARE ANTIPATED BY STAFF.
--- NOTE | 2019-05-12 19:50 | NUR ---
PATIENT IN BED, AWAKE, RESTLESS. MOVES SELF FROM SIDE TO SIDE IN BED, KICKS LEGS OVER SIDE OF BED. SEVERAL FAMILY MEMBERS IN VISITING. DOES NOT REPONDS TO QUESTIONS ASKED, BUT STATED "WHO ARE YOU?" COLOR PALE, SKIN COOL AND SLT MOIST TO TOUCH. RESP LABORED WITH EXERTION. O2 SAT 89-91 ON HIGH FLOW NC AT 15 L. BREATH SOUNDS DIMINISHED THROUGHOUT. ABD SOFT WITH ACTIVE BOWEL SOUNDS HEARD. NO PERIPHERAL EDEMA,, PULSES PALPABLE. RIJ TLC WITH LEVOPHED GTT AT 8 MCG/MIN (30 ML/HR), HEPARIN GTT AT 400 UNITS/HR (8 ML/HR), UNUSED PORT HEP LOCKED. #20 SALINE LOCK IN RAC AND #22 IV IN RFA WITH NS INFUSING AT 125 ML/HR. ALL IV SITES BENIGN, DSGS CDI. AQUEDUCT AND RESERVOIR KEEPER SHOWS ST WITH FREQ PAC'S AND PVC'S. HR 110'S-120'S WHILE VISITORS PRESENT. DISUSSED PLAN OF CARE WITH PATIENT AND FAMILY. CALL PAGAN IN REACH.
--- NOTE | 2019-05-12 20:30 | NUR ---
COMPLETE BED BATH GIVEN. PATIENT VERY RESTLESS IN BED. TRANSFERRED TO RECLINER WITH 2 PERSON ASSIST, LEGS ELEVATED AND PROPPED WITH PILLOWS NEEDED. SON IN ROOM.
--- NOTE | 2019-05-12 21:00 | NUR ---
PATIENT MUCH CALMER IN CHAIR. O2 SAT 93-95% AND HEART RATE 100-110.
--- NOTE | 2019-05-12 22:15 | NUR ---
PATIENT TRANSFERRED BACK TO BED WITH 2 PERON ASSIST, MINIMAL WEIGHT BEARING. POSITIONED ONTO LEFT SIDE. NOT INCONTINET AT THIS TIME-BRIEF IS DRY. REAMINS ON HIGH FLOW NC AT 15 L.
--- NOTE | 2019-05-12 22:22 | NUR ---
SON AT BEDSIDE REFUSED BIPAP WHILE RN AND FLAMER SEALER IN THE ROOM.
--- NOTE | 2019-05-12 22:25 | NUR ---
RT CAME TO PLACE PATIENT ON BIPAP FOR THE NIGHT AND PATIENT SON REFUSED. SON STATES "WE ARE DONE WITH THAT, IT JUST MAKES HER UPSET, WE DON'T WANT IT." PATIENT LEFT ON O2 PER HIGH FLOW CANNULA.
[2019-05-13] VITALS (14 sets, daily range): BP systolic 101–142; BP diastolic 56–74
--- NOTE | 2019-05-13 00:05 | NUR ---
PATIENT RESTLESS IN BED, MOANING OUT. INCONTINENT OF URINE- PERICARE GIVEN AND BRIEF CHANGED. REPOSTIONED IN BED. HR UP TO 110'S, RR 34 SHALLOW.
--- NOTE | 2019-05-13 00:07 | NUR ---
MEDICATED WITH MORPHINE FOR PAIN.
--- NOTE | 2019-05-13 00:30 | NUR ---
PATIENT RESTING CALMLY AND QUIETLY NOW WITH EYES CLOSED. HR 90'S-105, RR 28, O2 SAT 90%
--- NOTE | 2019-05-13 02:04 | NUR ---
SLEEPING. RESP SHALLOW, NON-LABORED.
--- NOTE | 2019-05-13 04:05 | NUR ---
PATIENT RESTLESS AT TIMES. TURNS SELF IN BED FROM SIDE TO SIDE. RFA IV SITE FOUND DISLODGED WITH CATHETER INATCT. NS DESI INFUSING INTO RAC SITE.
[2019-05-13 05:28] LABS: HEMATOCRIT 29.4 % (37.0-47.0); HEMOGLOBIN 9.2 g/dl (12.0-16.0); MEAN CELL VOLUME 81.4 fL CALC (80.0-100.0); MEAN CORPUSCULAR HGB 25.5 pG CALC (26.0-32.0); MEAN CORPUSCULAR HGB CONC 31.3 g/L CALC (32.0-36.0); RED BLOOD COUNT 3.61 mill/uL (4.20-5.60); RED CELL DISTRI WIDTH 16.2 % (11.5-15.5)
[2019-05-13 05:50] LABS: ALBUMIN 2.7 g/dL (3.2-5.0); BILIRUBIN, TOTAL 0.9 mg/dL (0.0-1.4); CREATININE 1.5 mg/dL (0.5-1.0); POTASSIUM 4.3 mmol/l (3.5-5.1); TOTAL PROTEIN 5.7 g/dL (6.3-8.2)
--- NOTE | 2019-05-13 08:11 | NUR ---
REPORT RECEIVED FROM NIGHT NURSE. PT RESTING IN BED. FAMILY MEMEBER AT BEDSIDE. ALL QUESTIONS ASKED. NO NEEDS AT THIS TIME. WILL CONTINUE TO MONITOR.
--- NOTE | 2019-05-13 08:55 | NUR ---
DR. GRAY AT BEDSIDE TO ASSESS PT. FAMILY AT BEDSIDE. ALL QUESTIONS ANSWERED. HOSPICE CONSULT PLACED. WILL CONTINUE TO MONITOR.
--- NOTE | 2019-05-13 10:45 | NUR ---
SPOKE TO POCKET CREASER REESE. UPDATED ON PATIENT STATUS. SOIL FIELD TECHNICIAN TO SEE PATIENT TODAY.
--- NOTE | 2019-05-13 10:49 | NUR ---
PT IN BED RESTLESS. FAMILY AT BEDSIDE. UPDATED FAMILY ON PLAN FOR HOSPICE NURSE TO SEE PATIENT TODAY. WILL CONTINUE TO MONITOR.
--- NOTE | 2019-05-13 12:30 | NUR ---
MILITARY SCIENCE TEACHER ARMANDO AT BEDSIDE TO ASSESS PT. FAMILY AT BEDSIDE. ALL QUESTIONS ANSWERED. WILL CONTINUE TO MONITOR.
--- NOTE | 2019-05-13 12:52 | NUR ---
ORDERS FOR PALLIATIVE CARE RECEIVED. UPDATED FAMILY AT BEDSIDE ON NEW ORDERS.
--- NOTE | 2019-05-13 13:35 | NUR ---
LEVO GTT, HEPARIN GTT AND MONITOR DC PER MD PALLIATIVE CARE ORDER.
== END 2019-05-13 12:52 | disposition hospice, inpatient (51) | DRG 871 ==
PROVIDERS: Family Medicine; ADMIT Internal Medicine
PROC: 5A09357 Assistance with Respiratory Ventilation, Less than 24 Consecutive Hours, Continuous Positive Airway Pressure (ICD-10-PCS; principal; 2019-05-11)
PROC: 30233N1 Transfusion of Nonautologous Red Blood Cells into Peripheral Vein, Percutaneous Approach (ICD-10-PCS; 2019-05-11)
PROC: 02HV33Z Insertion of Infusion Device into Superior Vena Cava, Percutaneous Approach (ICD-10-PCS; 2019-05-11)
DX: A41.51 Sepsis due to Escherichia coli [E. coli] (principal); R65.21 Severe sepsis with septic shock; J18.9 Pneumonia, unspecified organism; J96.01 Acute respiratory failure with hypoxia; I21.A1 Myocardial infarction type 2; N39.0 Urinary tract infection, site not specified; E87.2 Acidosis; I12.9 Hypertensive chronic kidney disease with stage 1 through stage 4 chronic kidney disease, or unspecified chronic kidney disease; N18.9 Chronic kidney disease, unspecified; F03.90 Unspecified dementia, unspecified severity, without behavioral disturbance, psychotic disturbance, mood disturbance, and anxiety; I95.9 Hypotension, unspecified; I25.10 Atherosclerotic heart disease of native coronary artery without angina pectoris; K72.90 Hepatic failure, unspecified without coma; Z66 Do not resuscitate; Z51.5 Encounter for palliative care; Z87.440 Personal history of urinary (tract) infections; Z87.891 Personal history of nicotine dependence; Z95.5 Presence of coronary angioplasty implant and graft; Z86.73 Personal history of transient ischemic attack (TIA), and cerebral infarction without residual deficits
CPT/HCPCS: J0692; J1644; P9016

== ENCOUNTER 2019-05-13 12:52 | Inpatient (IN) | payer OTHER, MEDICARE, MEDICAID ==
[~2019-05-13] VITALS: Ht 165.1 cm; Wt 62.0 kg
[~2019-05-13 12:52] MED LIST changes: +ACIDOPHILUS1 CAP PO; +SEROQUEL25 MG PO; +TRAZODONE50 MG PO
[2019-05-13 19:30] VITALS: BP 104/68; BP 74/59
[2019-05-14 06:15] VITALS: BP 78/58; BP 92/50
[2019-05-14 14:40] VITALS: BP 139/72
[2019-05-14 19:10] VITALS: BP 146/82
[2019-05-15 12:00] VITALS: BP 127/74
[2019-05-15 16:25] VITALS: BP 132/69
[2019-05-15 18:52] VITALS: BP 122/62
== END 2019-05-15 20:35 | disposition hospice, inpatient (51) | DRG 951 ==
LOC: ICU 12:52 → MS2 05-14 14:30
PROVIDERS: ADMIT Internal Medicine; ATTEND Internal Medicine
DX: Z51.5 Encounter for palliative care (principal); A41.50 Gram-negative sepsis, unspecified; R65.21 Severe sepsis with septic shock; I21.4 Non-ST elevation (NSTEMI) myocardial infarction; I12.9 Hypertensive chronic kidney disease with stage 1 through stage 4 chronic kidney disease, or unspecified chronic kidney disease; N18.9 Chronic kidney disease, unspecified; I25.10 Atherosclerotic heart disease of native coronary artery without angina pectoris; F03.90 Unspecified dementia, unspecified severity, without behavioral disturbance, psychotic disturbance, mood disturbance, and anxiety; Z66 Do not resuscitate; Z87.440 Personal history of urinary (tract) infections; Z86.73 Personal history of transient ischemic attack (TIA), and cerebral infarction without residual deficits
CPT/HCPCS: J2060